=== PATIENT | female | born 1965 | race Caucasian/White ===

== ENCOUNTER 2016-08-07 11:01 | Observation (INO) | payer OTHER ==
[~2016-08-07] VITALS: Ht 162.6 cm; Wt 85.6 kg
[~2016-08-07 11:01] MED LIST: ACET325T11 PO; BENA25TA8 PO; CLIN150 PO; LACTATED RINGER'S 1000 ML INJ 2,000 ML IV ONE; NAPR500 PO; ONDANSETRON HCL 4 MG/2 ML VIAL IV PUSH ONE; PROPOFOL 200 MG/20 ML AMP IV ONE
[2016-08-07 11:04] VITALS: BP 135/79; PULSE 90; RESP 22; TEMP 98.2; O2SAT 100
--- NOTE | 2016-08-07 11:21 | PD ---
HPI Chief Complaint: GI Complaint Time Seen by Provider: 11:20 Travel History International Travel<30 days: No Contact w/Intl Traveler<30days: No Traveled to known affect area: No History of Present Illness HPI 51-year-old female presents the emergency department with 36 hours history of sudden onset abdominal pain with nausea and vomiting and chills. Patient has decreased urine output due to the fact she's been unable to eat or drink anything since yesterday. She denies fever or chills but has generalized weakness and muscle aches. She has no sore throat or headache. No cough or chest pain. Patient has no history of diverticulitis or Crohn's disease. She denies flank pain. She has generalized abdominal pain and discomfort. She is allergic to penicillin. PFSH Past Medical History ?: Not : 6 Para: 1 Miscarriage: 2 : 3 Tubal Ligation: Yes Past Surgical History Tonsillectomy: Yes Social History Alcohol Use: Yes (3 BEERS A DAY) Tobacco Use: No Substance Use: No Allergies-Medications (Allergen,Severity, Reaction): Coded Allergies: Penicillin (Verified Allergy, Severe, Anaphylaxis, 08/07/16) Reported Meds & Prescriptions Reported Meds & Active Scripts Active Naprosyn (Naproxen) 500 Mg Tab 500 Mg PO BID Cleocin (Clindamycin HCl) 150 Mg Cap 300 Mg PO Q6 10 Days Reported Tylenol 325 Mg Tab (Acetaminophen) 325 Mg Tab 650 Mg PO Q4 PRN Benadryl 25 mg tab (Diphenhydramine HCl) 25 Mg Tab 25 Mg PO Q4H Review of Systems Except as stated in HPI: all other systems reviewed are Neg General / Constitutional: Positive: Chills, No: Fever Eyes: No: Visual changes HENT: Positive: Lightheadedness, No: Headaches, Sore Throat, Rhinitis, Rhinorrhea, Congestion, Neck Stiffness, Neck Pain, Earache Cardiovascular: No: Chest Pain or Discomfort Respiratory: No: Shortness of Breath Gastrointestinal: Positive: Nausea, Vomiting, Abdominal Pain, No: Diarrhea Genitourinary: Positive: Decreased Urinary Output, No: Dysuria Musculoskeletal: Positive: Myalgias, No: Pain Skin: No Rash Neurologic: No: Weakness Psychiatric: No: Depression Endocrine: No: Polydipsia Hematologic/Lymphatic: No: Easy Bruising Physical Exam Narrative GENERAL: Patient appears ill. SKIN: Warm and dry. Poor pallor. Poor turgor with tenting present. HEAD: Atraumatic. Normocephalic. EYES: Pupils equal and round. No scleral icterus. No injection or drainage. ENT: No nasal bleeding or discharge. Mucous membranes pink and dry. Pharynx is clear. TMs clear bilaterally. NECK: Trachea midline. Supple and nontender. CARDIOVASCULAR: Tachycardic rate and normal rhythm. RESPIRATORY: No accessory muscle use. Clear to auscultation. Breath sounds equal bilaterally. GASTROINTESTINAL: Abdomen soft, generalized moderate tenderness without guarding or rebound, nondistended. No CVA tenderness. Decreased bowel sounds throughout all quadrants. Hepatic and splenic margins not palpable. MUSCULOSKELETAL: Extremities without clubbing, cyanosis, or edema. No obvious deformities. NEUROLOGICAL: Awake and alert. No obvious cranial nerve deficits. Motor grossly within normal limits. Five out of 5 muscle strength in the arms and legs. Normal speech. PSYCHIATRIC: Appropriate mood and affect; insight and judgment normal. Data Data Last Documented VS Vital Signs Date Time Temp Pulse Resp B/P Pulse Ox O2 Delivery O2 Flow Rate FiO2 08/07/16 12:45 94 20 148/92 99 Room Air 08/07/16 11:04 98.2 Orders Complete Blood Count With Diff (08/07/16 11:23) Comprehensive Metabolic Panel (08/07/16 11:23) Lipase (08/07/16 11:23) Lactic Acid (08/07/16 11:23) Prothrombin Time / Inr (Pt) (08/07/16 11:23) Act Partial Throm Time (Ptt) (08/07/16 11:23) Urinalysis - C+S If Indicated (08/07/16 11:23) Ct Abd/Pel W Iv Contrast(Rout) (08/07/16 11:23) Iv Access Insert/Monitor (08/07/16 11:23) Ecg Monitoring (08/07/16 11:23) Oximetry (08/07/16 11:23) NPO (08/07/16 11:23) Morphine Inj (Morphine Inj) (08/07/16 11:30) Ondansetron Inj (Zofran Inj) (08/07/16 11:30) Sodium Chlor 0.9% 1000 Ml Inj (Ns 1000 M (08/07/16 11:23) Sodium Chloride 0.9% Flush (Ns Flush) (08/07/16 11:30) Influenzae A/B Antigen (08/07/16 11:23) Oral Contrast - Adult (08/07/16 11:30) Diatrizoate Liq ( Gastroanjel Liq) (08/07/16 12:09) Urine Culture (08/07/16 11:56) Levofloxacin 500 Mg Premix Inj (Levaquin (08/07/16 13:15) Metronidazole 500 Mg Inj (Flagyl 500 Mg (08/07/16 13:15) Sodium Chlor 0.9% 1000 Ml Inj (Ns 1000 M (08/07/16 13:15) Ed Poc Ultrasound (08/07/16 ) Iohexol 350 Inj (Omnipaque 350 Inj) (08/07/16 13:31) Sodium Chlor 0.9% 1000 Ml Inj (Ns 1000 M (08/07/16 14:15) Diet Npo (08/07/16 Dinner) Admit Order (Ed Use Only) (08/07/16 14:11) Labs Laboratory Tests Test 08/07/16 08/07/16 11:56 12:04 Urine Color YELLOW Urine Turbidity HAZY Urine pH 7.0 Urine Specific [place] 1.021 Urine Protein 30 mg/dL Urine Glucose (UA) NEG mg/dL Urine Ketones 10 mg/dL Urine Occult Blood SMALL Urine Nitrite NEG Urine Bilirubin NEG Urine Urobilinogen LESS THAN 2.0 MG/DL Urine Leukocyte Esterase LARGE Urine RBC 9 /hpf Urine WBC 15 /hpf Urine Squamous Epithelial 6 /hpf Cells Urine Bacteria OCC /hpf Urine Mucus MOD /lpf Microscopic Urinalysis Comment CULTURE INDICATED White Blood Count 19.7 TH/MM3 Red Blood Count 4.64 MIL/MM3 Hemoglobin 14.2 GM/DL Hematocrit 41.3 % Mean Corpuscular Volume 89.0 FL Mean Corpuscular Hemoglobin 30.6 PG Mean Corpuscular Hemoglobin 34.4 % Concent Red Cell Distribution Width 12.3 % Platelet Count 407 TH/MM3 Mean Platelet Volume 7.0 FL Neutrophils (%) (Auto) 89.1 % Lymphocytes (%) (Auto) 6.7 % Monocytes (%) (Auto) 4.0 % Eosinophils (%) (Auto) 0.0 % Basophils (%) (Auto) 0.2 % Neutrophils # (Auto) 17.6 TH/MM3 Lymphocytes # (Auto) 1.3 TH/MM3 Monocytes # (Auto) 0.8 TH/MM3 Eosinophils # (Auto) 0.0 TH/MM3 Basophils # (Auto) 0.0 TH/MM3 CBC Comment DIFF FINAL Differential Comment Prothrombin Time 11.2 SEC Prothromb Time International 1.0 RATIO Ratio Activated Partial 29.5 SEC Thromboplast Time Sodium Level 131 MEQ/L Potassium Level 3.3 MEQ/L Chloride Level 94 MEQ/L Carbon Dioxide Level 26.0 MEQ/L Anion Gap 11 MEQ/L Blood Urea Nitrogen 11 MG/DL Creatinine 0.84 MG/DL Estimat Glomerular Filtration 71 ML/MIN Rate Random Glucose 129 MG/DL Lactic Acid Level 1.7 mmol/L Calcium Level 9.8 MG/DL Total Bilirubin 2.5 MG/DL Aspartate Amino Transf 6 U/L (AST/SGOT) Alanine Aminotransferase 20 U/L (ALT/SGPT) Alkaline Phosphatase 92 U/L Total Protein 8.6 GM/DL Albumin 4.1 GM/DL Lipase 84 U/L [facility] Medical Decision Making Medical Screen Exam Complete: Yes Emergency Medical Condition: Yes Differential Diagnosis Influenza. Acute nausea and vomiting. Gastritis. Diverticulitis. Appendicitis. Dehydration. Decreased urine output. Urinary tract infection. Narrative Course Patient appears ill but not septic. Labs ordered including CBC, CMP, lactic acid, lipase, urinalysis, PT PTT and INR. IV access is obtained patient is given 4 mg Zofran IV as well as 4 mg morphine IV. Patient is to get thousand and rales normal saline bolus. CT of the abdomen with IV and oral contrast was ordered. Patient is awaiting med bed placement and practitioner there will determine final diagnosis. Condition: Stable Rajesh Cox Aug 07, 2016 11:20
[2016-08-07] MEDS ORDERED: SODIUM CHLOR 0.9% 1000 ML INJ 1,000 ML IV SCH (11:23)
[2016-08-07] MEDS ORDERED: SODIUM CHLORIDE 0.9% FLUSH 5 ML FLUSH IVF PRN ×2 (11:30→18:00)
[2016-08-07] MEDS ORDERED: MORPHINE SULFATE 4 MG/ML INJ IV PUSH ONE (11:30)
[2016-08-07] MEDS ORDERED: ONDANSETRON HCL 4 MG/2 ML VIAL IVP ONE (11:30)
[2016-08-07] MEDS ORDERED: NEOSTIGMINE 3 MG/3 ML SYR IV ONE (12:00)
[2016-08-07] MEDS ORDERED: DIATRIZOATE MEGLUM/DIATRIZOATE SOD 9 ML CUP ONE (12:09)
[2016-08-07 12:19] LABS: AUTOMATED NEUTROPHIL # 17.6 TH/MM3 (1.8-7.7); BASOPHIL % 0.2 % (0.0-2.0); HEMATOCRIT 41.3 % (35.0-46.0); HEMO FLAGS DIFF FINAL; LYMPH % 6.7 % (9.0-44.0); LYMPHOCYTE # 1.3 TH/MM3 (1.0-4.8); MEAN CORPUSCULAR HEMOGLOBIN 30.6 PG (27.0-34.0); MEAN CORPUSCULAR HGB CONC 34.4 % (32.0-36.0); NEUT % 89.1 % (16.0-70.0); PLATELET COUNT 407 TH/MM3 (150-450); RED BLOOD COUNT 4.64 MIL/MM3 (4.00-5.30); RED CELL DISTRIBUTION WIDTH 12.3 % (11.6-17.2); WHITE BLOOD COUNT 19.7 TH/MM3 (4.0-11.0)
[2016-08-07 12:22] LABS: BACTERIA, URINE OCC /hpf; BLOOD, URINE SMALL (NEG); COMMENT (UR) CULTURE INDICATED; CULTURE IF INDICATED CULTURE INDICATED; GLUCOSE,URINE NEG (NEG); KETONE, URINE 10 mg/dL (NEG); MUCUS URINE MOD /lpf (OCC); NITRITE,URINE NEG (NEG); SQUAMOUS EPITHELIAL CELL URINE 6 /hpf (0-5); URINE COLOR YELLOW (YELLW/STRAW)
[2016-08-07 12:28] LABS: APTT (PATIENT) 29.5 SEC (24.3-30.1); PROTHROMBIN TIME - PATIENT 11.2 SEC (9.8-11.6)
[2016-08-07 12:45] VITALS: BP 148/92; PULSE 94; RESP 20; O2SAT 99
[2016-08-07 12:45] LABS: ANION GAP 11 MEQ/L (5-15); AST (GOT) 6 U/L (15-37); BLOOD UREA NITROGEN 11 MG/DL (7-18); CHLORIDE 94 MEQ/L (98-107); GLOMERULAR FILTRATION RATE 71 ML/MIN (>89); POTASSIUM 3.3 MEQ/L (3.5-5.1); SODIUM (NA) 131 MEQ/L (136-145)
[2016-08-07 12:49] LABS: ALKALINE PHOSPHATASE 92 U/L (45-117); ALT (GPT) 20 U/L (10-53); TOTAL BILIRUBIN ADULT 2.5 MG/DL (0.2-1.0)
[2016-08-07] MEDS ORDERED: metroNIDAZOLE 500 MG INJ 100 ML IV ONE (13:15)
[2016-08-07] MEDS ORDERED: LEVOFLOXACIN 500 MG PREMIX INJ 100 ML IV ONE (13:15)
[2016-08-07] MEDS ORDERED: SODIUM CHLOR 0.9% 1000 ML INJ 1,000 ML IV ONE ×3 (13:15→14:30)
--- NOTE | 2016-08-07 13:27 | PD ---
HPI Chief Complaint: GI Complaint Time Seen by Provider: 12:40 Travel History International Travel<30 days: No Contact w/Intl Traveler<30days: No Traveled to known affect area: No History of Present Illness HPI 51-year-old female came to the emergency room with history of abdominal pain since yesterday. Patient points her pain towards her lower part of the abdomen bilaterally. She is also complaining of some pain on the upper abdomen. No history of vomiting that she was little nauseous. Her appetite his down. Pain is quite severe. Walking hurts. Patient has never had pain like this in the past. She was seen by the provider in triage and workup was initiated. By the time she came to the room here blood test results were back and her white count was elevated. She also had a UTI. I started her on IV Levaquin and Flagyl and give her IV fluid bolus. PFSH Past Medical History Narrative Medical List of her past medical, surgical, social and family history is reviewed from the nursing note. ?: Not : 6 Para: 1 Miscarriage: 2 : 3 Tubal Ligation: Yes Past Surgical History Tonsillectomy: Yes Social History Alcohol Use: No Tobacco Use: No Substance Use: No Allergies-Medications (Allergen,Severity, Reaction): Coded Allergies: Penicillin (Verified Allergy, Severe, Anaphylaxis, 08/07/16) Comments List of her allergies reviewed from the nursing note. Reported Meds & Prescriptions Reported Meds & Active Scripts Active Oxycodone-Acetaminophen 5-325 mg Tab 1-2 Tab PO Q4H PRN Naprosyn (Naproxen) 500 Mg Tab 500 Mg PO BID Cleocin (Clindamycin HCl) 150 Mg Cap 300 Mg PO Q6 10 Days Reported Tylenol 325 Mg Tab (Acetaminophen) 325 Mg Tab 650 Mg PO Q4 PRN Benadryl 25 mg tab (Diphenhydramine HCl) 25 Mg Tab 25 Mg PO Q4H Narrative Medication List of her home medications reviewed from the nursing note. Review of Systems Except as stated in HPI: all other systems reviewed are Neg Physical Exam Narrative GENERAL: Awake, alert, moderate distress SKIN: Warm and dry. HEAD: Atraumatic. Normocephalic. EYES: Pupils equal and round. No scleral icterus. No injection or drainage. ENT: No nasal bleeding or discharge. Mucous membranes pink and moist. NECK: Trachea midline. No JVD. CARDIOVASCULAR: Regular rate and rhythm. No murmur appreciated. RESPIRATORY: No accessory muscle use. Clear to auscultation. Breath sounds equal bilaterally. GASTROINTESTINAL: Abdomen is tender and distended. Tender on palpation in the bilateral lower quadrant with guarding. MUSCULOSKELETAL: No obvious deformities. No clubbing. No cyanosis. No edema. NEUROLOGICAL: Awake and alert. No obvious cranial nerve deficits. Motor grossly within normal limits. Normal speech. PSYCHIATRIC: Appropriate mood and affect; insight and judgment normal. Data Data Last Documented VS Vital Signs Date Time Temp Pulse Resp B/P Pulse Ox O2 Delivery O2 Flow Rate FiO2 08/07/16 12:45 94 20 148/92 99 Room Air 08/07/16 11:04 98.2 Orders Complete Blood Count With Diff (08/07/16 11:23) Comprehensive Metabolic Panel (08/07/16 11:23) Lipase (08/07/16 11:23) Lactic Acid (08/07/16 11:23) Prothrombin Time / Inr (Pt) (08/07/16 11:23) Act Partial Throm Time (Ptt) (08/07/16 11:23) Urinalysis - C+S If Indicated (08/07/16 11:23) Ct Abd/Pel W Iv Contrast(Rout) (08/07/16 11:23) Iv Access Insert/Monitor (08/07/16 11:23) Ecg Monitoring (08/07/16 11:23) Oximetry (08/07/16 11:23) NPO (08/07/16 11:23) Morphine Inj (Morphine Inj) (08/07/16 11:30) Ondansetron Inj (Zofran Inj) (08/07/16 11:30) Sodium Chlor 0.9% 1000 Ml Inj (Ns 1000 M (08/07/16 11:23) Sodium Chloride 0.9% Flush (Ns Flush) (08/07/16 11:30) Influenzae A/B Antigen (08/07/16 11:23) Oral Contrast - Adult (08/07/16 11:30) Diatrizoate Liq ( Gastroview Liq) (08/07/16 12:09) Urine Culture (08/07/16 11:56) Levofloxacin 500 Mg Premix Inj (Levaquin (08/07/16 13:15) Metronidazole 500 Mg Inj (Flagyl 500 Mg (08/07/16 13:15) Sodium Chlor 0.9% 1000 Ml Inj (Ns 1000 M (08/07/16 13:15) Ed Poc Ultrasound (08/07/16 ) Iohexol 350 Inj (Omnipaque 350 Inj) (08/07/16 13:31) Sodium Chlor 0.9% 1000 Ml Inj (Ns 1000 M (08/07/16 14:15) Admit Order (Ed Use Only) (08/07/16 14:11) Labs Laboratory Tests Test 08/07/16 08/07/16 11:56 12:04 Urine Color YELLOW Urine Turbidity HAZY Urine pH 7.0 Urine Specific [place] 1.021 Urine Protein 30 mg/dL Urine Glucose (UA) NEG mg/dL Urine Ketones 10 mg/dL Urine Occult Blood SMALL Urine Nitrite NEG Urine Bilirubin NEG Urine Urobilinogen LESS THAN 2.0 MG/DL Urine Leukocyte Esterase LARGE Urine RBC 9 /hpf Urine WBC 15 /hpf Urine Squamous Epithelial 6 /hpf Cells Urine Bacteria OCC /hpf Urine Mucus MOD /lpf Microscopic Urinalysis Comment CULTURE INDICATED White Blood Count 19.7 TH/MM3 Red Blood Count 4.64 MIL/MM3 Hemoglobin 14.2 GM/DL Hematocrit 41.3 % Mean Corpuscular Volume 89.0 FL Mean Corpuscular Hemoglobin 30.6 PG Mean Corpuscular Hemoglobin 34.4 % Concent Red Cell Distribution Width 12.3 % Platelet Count 407 TH/MM3 Mean Platelet Volume 7.0 FL Neutrophils (%) (Auto) 89.1 % Lymphocytes (%) (Auto) 6.7 % Monocytes (%) (Auto) 4.0 % Eosinophils (%) (Auto) 0.0 % Basophils (%) (Auto) 0.2 % Neutrophils # (Auto) 17.6 TH/MM3 Lymphocytes # (Auto) 1.3 TH/MM3 Monocytes # (Auto) 0.8 TH/MM3 Eosinophils # (Auto) 0.0 TH/MM3 Basophils # (Auto) 0.0 TH/MM3 CBC Comment DIFF FINAL Differential Comment Prothrombin Time 11.2 SEC Prothromb Time International 1.0 RATIO Ratio Activated Partial 29.5 SEC Thromboplast Time Sodium Level 131 MEQ/L Potassium Level 3.3 MEQ/L Chloride Level 94 MEQ/L Carbon Dioxide Level 26.0 MEQ/L Anion Gap 11 MEQ/L Blood Urea Nitrogen 11 MG/DL Creatinine 0.84 MG/DL Estimat Glomerular Filtration 71 ML/MIN Rate Random Glucose 129 MG/DL Lactic Acid Level 1.7 mmol/L Calcium Level 9.8 MG/DL Total Bilirubin 2.5 MG/DL Aspartate Amino Transf 6 U/L (AST/SGOT) Alanine Aminotransferase 20 U/L (ALT/SGPT) Alkaline Phosphatase 92 U/L Total Protein 8.6 GM/DL Albumin 4.1 GM/DL Lipase 84 U/L [facility] Medical Decision Making Medical Screen Exam Complete: Yes Emergency Medical Condition: Yes Medical Record Reviewed: Yes Differential Diagnosis Acute cholecystitis, acute appendicitis Narrative Course 2:16 PM based on the blood test result medications were started. CAT scan report just came back with acute appendicitis and possible perforation. I spoke with the surgeon Dr. Karimi and he wants the patient to be admitted under his service. He'll look at the CT and decide whether patient will be going to the OR now. I have informed the patient about this. Procedures EKG Prior to Arrival: No Physician Communication Physician Communication Dr. Karimi Diagnosis Primary Impression: Acute appendicitis Qualified Code: K35.3 - Acute appendicitis with localized peritonitis Admitting Information Admitting Physician Requests: Admit Scripts Ondansetron (Zofran)4 Mg Tab4 Mg PO Q6HR PRN (NAUSEA OR VOMITING) #20 TAB Ref 0 Prov:Ramírez Karimi MD 08/09/16 Oxycodone-Acetaminophen 5-325 mg Tab1-2 Tab PO Q4H PRN (PAIN) #30 TAB Ref 0 Prov:Ramírez Karimi MD 08/07/16 Condition: Stable Stephanie Thompson MD Aug 07, 2016 13:27
[2016-08-07] MEDS ORDERED: IOHEXOL 350 MG/ML 10 ML VIAL (for RAD DIAG) IV ONE (13:31)
--- NOTE | 2016-08-07 13:56 | RADRPT ---
EXAM DATE/TIME: 08/07/2016 13:23 [place] COMPARISON: No previous studies available for comparison. INDICATIONS : Abdominal pain with vomiting for 2 days. IV CONTRAST: 98 cc Omnipaque 350 (iohexol) IV ORAL CONTRAST: Partial prescribed oral contrast ingested. RADIATION DOSE: 10.19 CTDIvol (mGy) MEDICAL HISTORY : None SURGICAL HISTORY : Tubal ligation. ENCOUNTER: Initial ACUITY: 2 days PAIN SCALE: 4/10 LOCATION: Diffuse abdomen/pelvis TECHNIQUE: Volumetric scanning of the abdomen and pelvis was performed. Using automated exposure control and ad justment of the mA and/or kV according to patient size, radiation dose was kept as low as reasonably achievable to obtain optimal diagnostic quality images. FINDINGS: LOWER LUNGS: The visualized lower lungs are clear. LIVER: The liver is enlarged measuring 20.1 cm in length. In the right posterior liver there is a 15 mm low- density lesion. Density measurements are not consistent with a simple cyst and there may be periphera l nodular enhancement. There is no dilation of the biliary tree. No calcified gallstones. SPLEEN: Normal size without lesion. PANCREAS: Within normal limits. KIDNEYS: Normal in size and shape. There is no mass, stone or hydronephrosis. ADRENAL GLANDS: Right adrenal gland is normal. Left adrenal gland contains a fat density mass measuring 2.2 cm. VASCULAR: There is no aortic aneurysm. BOWEL/MESENTERY: The stomach and small bowel demonstrates no abnormality. The appendix is dilated and fluid-filled wit h surrounding periappendiceal inflammation. It measures 12 mm in diameter. There is likely an appendi colith at the base of the appendix. The appendix extends slightly across the midline. There is questi onable extraluminal air adjacent to the tip. Trace free fluid is present in the pelvis. ABDOMINAL WALL: Within normal limits. RETROPERITONEUM: There is no lymphadenopathy. BLADDER: No wall thickening or mass. REPRODUCTIVE: Within normal limits. INGUINAL: There is no lymphadenopathy or hernia. MUSCULOSKELETAL: There is mild sclerosis adjacent to the anterior left sacroiliac joint. No acute osseous abnormality is visualized. CONCLUSION: 1. The imaging findings are diagnostic of acute appendicitis. The appendix is dilated and fluid-fille d with surrounding inflammatory change. There is a possible appendicolith at the base of the appendix . There is trace free fluid in the pelvis. Based on the appearance of the tip of the appendix the chago endix may be perforated. 2. There is a 15 mm right liver lesion. It is incompletely characterized on this study but given the features it may represent a hemangioma. 3. 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 Raghavendra Bassett MD on August 07, 2016 at 13:47 Board Certified Radiologist. This report was verified electronically.
[2016-08-07 14:15] VITALS: BP 133/74; PULSE 95; RESP 18; O2SAT 99
[2016-08-07] MEDS ORDERED: BUPIVACAINE/EPINEPHRINE 0.25% 50 ML VIAL ONE (15:41)
[2016-08-07] MEDS ORDERED: ACETAMINOPHEN 1000 MG/100 ML VIAL IV ONE (16:25)
[2016-08-07] MEDS ORDERED: OXYC1TAB63 PO (17:52)
--- NOTE | 2016-08-07 17:55 | PD.OP ---
cc: Ramírez Karimi MD Operative Report Date of Surgery: Aug 07, 2016 Preoperative Diagnosis: (1) Acute appendicitis Postoperative Diagnosis: (1) Acute appendicitis Procedure: Laparoscopic appendectomy Anesthesia: GETA Surgeon: Ramírez Karimi Technical Specialist(s): Nava SHEPPARD Operation and Findings: EBL: 5 cc Complications: None apparent Operative findings: The patient and inflamed gangrenous appendix with some exudate around it. It was laying over the mesentery in the lower abdomen. Procedure in detail: The patient was taken to the operating room placed in the supine position with left arm tucked. General endotracheal anesthesia was induced and the abdomen was prepped and draped in usual sterile fashion. Surgical timeout was performed to verify correct patient procedure and site. Perioperative antibiotics were administered as necessary. Local anesthetic was injected in the skin and subcutaneous tissue at the inferior umbilicus and a 5 mm incision made. Using the 5 mm Optiview trocar with laparoscope the abdomen was directly entered. Was then insufflated to 15 mmHg with CO2 gas which the patient tolerated well. The patient was then placed in Trendelenburg position and turned slightly to the left. A 12 mm port was placed under laparoscopic visualization in the suprapubic area and a 5 mm port in the lower abdomen. Attention was turned to the right lower quadrant and the appendix was gangrenous and inflamed. There was some exudative material surrounding it. There was cloudy fluid in the pelvis. There was no shaun pus. The appendix was adherent to the mesentery in the lower abdomen. It was bluntly dissected free The mesoappendix was taken down with the Harmonic scalpel. Two #1 PDS Endoloops were placed at the base the appendix and the appendix transected with Harmonic scalpel. It was then removed using an Endo Catch bag. The appendiceal stump was intact with no leakage. The mesentery with exited material was present was copiously irrigated as well as right lower quadrant and pelvis. The trochars were removed and the abdomen allowed to desufflate. The fascia at the 12 mm port site was closed with 0 Vicryl suture. Skin closed with subcuticular Monocryl as well as Dermabond. The patient tolerated the procedure well was extubated and taken to PACU in stable condition. Ramírez Karimi MD Aug 07, 2016 17:55
[2016-08-07] MEDS ORDERED: diphenhydrAMINE HCL 50 MG/ML VIAL IV PRN (18:00)
[2016-08-07] MEDS ORDERED: Post-op Orders (for Pharmacy) MISC XX ONE (18:00)
[2016-08-07] MEDS ORDERED: oxyCODONE/ACETAMINOPHEN 5 MG/325 MG TAB PO PRN (18:00)
[2016-08-07] MEDS ORDERED: MORPHINE SULFATE 4 MG/ML INJ IV PRN (18:00)
[2016-08-07] MEDS ORDERED: NALOXONE HCL 0.4 MG/ML AMP IV PRN (18:00)
[2016-08-07] MEDS ORDERED: MIDAZOLAM HCL 2 MG/2 ML VIAL ONE (18:16)
[2016-08-07] MEDS ORDERED: fentaNYL CITRATE 250 MCG/5 ML AMP ONE (18:16)
[2016-08-07] MEDS: LACTATED RINGER'S 1000 ML INJ 1,000 ML IV SCH (18:33)
--- NOTE | 2016-08-07 18:39 | MH ---
cc: HANNA ANDERSON MD DATE OF ADMISSION 08/07/2016 CHIEF COMPLAINT Abdominal pain HISTORY OF PRESENT ILLNESS This is a 51-year-old female who has had abdominal pain since yesterday which is increasing in severity. She had associated anorexia as well as emesis. She denies fever and chills. Her past surgical history includes a tubal ligation. The patient was evaluated in the emergency department and noted to have lower abdominal tenderness as well as white blood count of 20,000. CT scan of the abdomen and pelvis was consistent with acute appendicitis. PAST MEDICAL HISTORY None PAST SURGICAL HISTORY 1. Tonsillectomy 2. Tubal ligation MEDICATIONS Home medications. No prescription medications. ALLERGIES PENICILLIN FAMILY HISTORY Noncontributory. SOCIAL HISTORY She drinks about three beers daily. No tobacco or drug use. REVIEW OF SYSTEMS 10-point review of systems negative except as mentioned in the HPI. PHYSICAL EXAMINATION GENERAL: Pleasant 51-year-old female uncomfortable but not in distress. HEAD: Normocephalic, atraumatic. EYES: Pupils equal, react to light bilaterally. ENT: Moist oral mucosa. LUNGS: Clear to auscultation bilaterally. No wheezing or rhonchi. CARDIOVASCULAR: Regular rate and rhythm. ABDOMEN: Round. Well-healed lower abdominal incision. Rebound and severe tenderness bilaterally in the lower abdomen. EXTREMITIES: No cyanosis or edema. IMAGING STUDIES CT abdomen and pelvis had acute appendicitis with a dilated appendix which was fluid-filled and had surrounding inflammatory changes. There was also a 2.2 cm left adrenal gland mass. IMPRESSION AND PLAN A 51-year-old female with acute appendicitis. I discussed with the patient the details, risks and benefits of the procedure and I recommend to proceed with laparoscopic appendectomy. She agrees. We will proceed at this time after consent is obtained. MD JOHANNE Riojas/ /5:58 PM /6:22 PM
[2016-08-07] MEDS ORDERED: DO NOT ADM ANY ANTICOAGULANT DRUGS XX PRN (19:00)
[2016-08-07 20:00] VITALS: BP 109/71; PULSE 85; RESP 18; TEMP 97.9; O2SAT 97
[2016-08-07] MEDS: oxyCODONE/ACETAMINOPHEN 10 MG/325 MG TAB PO PRN (21:14)
[2016-08-07] MEDS: metroNIDAZOLE 500 MG INJ 100 ML IV SCH (21:14)
[2016-08-07] MEDS: SODIUM CHLORIDE 0.9% FLUSH 5 ML FLUSH IVF SCH (21:15)
[2016-08-08] VITALS (7 sets, daily range): BP systolic 99–131; BP diastolic 64–88; PULSE 76–89; RESP 16–20; TEMP 96.9–98; O2SAT 97–98
[2016-08-08] MEDS: ONDANSETRON HCL 4 MG/2 ML VIAL IV PRN ×2 (01:47→07:45)
[2016-08-08] MEDS: LACTATED RINGER'S 1000 ML INJ 1,000 ML IV SCH (01:48)
[2016-08-08] MEDS: metroNIDAZOLE 500 MG INJ 100 ML IV SCH ×2 (04:29→14:00)
[2016-08-08] MEDS: oxyCODONE/ACETAMINOPHEN 10 MG/325 MG TAB PO PRN ×3 (04:29→22:36)
[2016-08-08] MEDS: SODIUM CHLORIDE 0.9% FLUSH 5 ML FLUSH IVF SCH ×2 (09:00→19:54)
--- NOTE | 2016-08-08 16:24 | HHI.PR ---
Subjective Subjective Notes Having some shoulder pain and gas pain. Had nausea with meds but improving. James liquids. Uncomfortable. Objective Vitals/I&O Vital Signs Date Time Temp Pulse Resp B/P Pulse Ox O2 Delivery O2 Flow Rate FiO2 08/08/16 12:00 98.0 82 16 131/84 98 08/08/16 08:30 21 08/07/16 19:00 Room Air 08/07/16 18:30 2 Labs Date/Time Procedure Status Source Growth 08/07/16 11:56 Urine Culture - Final Complete Urine Clean Catch 10-50,000 CFU/ML MIXED GRAM POSITIVE ... 08/07/16 11:56 Influenza Types A,B Antigen ([facility]I) - Final Complete Nasal Washing NEGATIVE FOR FLU A AND B ANTIGEN.... Narrative Exam NAD, uncomfortable Abd: soft, inc c/d/i, post op ttp A/P Assessment and Plan 51 yo F POD 1 s/p lap appy. Stable post op but having significant pain. Will keep her overnight. Regular diet. Encouraged ambulation. Ramírez Karimi MD Aug 08, 2016 16:24
[2016-08-08] MEDS: ONDANSETRON ODT 4 MG TAB PO PRN (19:53)
--- NOTE | 2016-08-08 19:54 | EKG ---
Date Performed: 08/07/2016 Time Performed: 16:16:35 PTAGE: 51 years EKG: SINUS TACHYCARDIA POSSIBLE LEFT ATRIAL ENLARGEMENT INCOMPLETE RIGHT BUNDLE BRANCH BLOCK ST DEVIATION AND MODERATE T-WAVE ABNORMALITY, CONSIDER LATERAL ISCHEMIA ABNORMAL ECG NO PREVIOUS TRACING DOCTOR: Sanjay Rahman Interpretating Date/Time 08/08/2016 19:52:34
[2016-08-09] VITALS: BP 115/72; PULSE 84; RESP 20; TEMP 97.9; O2SAT 98
[2016-08-09] MEDS: LACTATED RINGER'S 1000 ML INJ 1,000 ML IV SCH
[2016-08-09] MEDS: ONDANSETRON ODT 4 MG TAB PO PRN ×3 (02:01→15:09)
[2016-08-09] MEDS: oxyCODONE/ACETAMINOPHEN 10 MG/325 MG TAB PO PRN ×3 (04:37→15:09)
[2016-08-09 07:52] VITALS: BP 116/79; PULSE 73; RESP 16; TEMP 97.1; O2SAT 98
[2016-08-09] MEDS ORDERED: ZOFR4TAB PO (11:26)
--- NOTE | 2016-08-09 11:28 | HHI.DS ---
Discharge Summary Admission Date Aug 07, 2016 at 14:13 Discharge Date: Aug 09, 2016 Admitting Diagnosis appendicitis, sepsis Procedures Lap appendectomy Brief History 51 yo F presented with abdominal pain and evaluation is consistent with acute appendicitis. CBC/BMP: 08/07/16 1204 08/07/16 1204 Significant Findings Laboratory Tests Test 08/07/16 08/07/16 11:56 12:04 Urine Turbidity HAZY (CLEAR) Urine Protein 30 mg/dL (NEG-TRACE) Urine Ketones 10 mg/dL (NEG) Urine Occult Blood SMALL (NEG) Urine Leukocyte Esterase LARGE (NEG) Urine RBC 9 /hpf (0-3) Urine WBC 15 /hpf (0-5) Urine Bacteria OCC /hpf (NONE) Urine Mucus MOD /lpf (OCC) White Blood Count 19.7 TH/MM3 (4.0-11.0) Neutrophils (%) (Auto) 89.1 % (16.0-70.0) Lymphocytes (%) (Auto) 6.7 % (9.0-44.0) Neutrophils # (Auto) 17.6 TH/MM3 (1.8-7.7) Sodium Level 131 MEQ/L (136-145) Potassium Level 3.3 MEQ/L (3.5-5.1) Chloride Level 94 MEQ/L (98-107) Estimat Glomerular Filtration 71 ML/MIN (>89) Rate Random Glucose 129 MG/DL (74-106) Total Bilirubin 2.5 MG/DL (0.2-1.0) Aspartate Amino Transf 6 U/L (15-37) (AST/SGOT) Total Protein 8.6 GM/DL (6.4-8.2) PE at Discharge NAD Abd: soft, inc c/d/i, post op ttp Hospital Course Postoperatively the patient had nausea and felt somewhat poorly overall. This gradually improved and she is able to tolerate liquid diet, pain better controlled. Pt Condition on Discharge: Good Discharge Disposition: Discharge Home Discharge Instructions DIET: Follow Instructions for: As Tolerated, No Restrictions Activities you can perform: See Additionl Instruction Other Activity Instructions: Ok to shower. No heavy lifting. Follow up Referrals: Surgical - 2 Weeks with Ramírez Karimi MD New Medications: Ondansetron (Zofran) 4 Mg Tab 4 MG PO Q6HR PRN NAUSEA OR VOMITING #20 Ref 0 TAB Oxycodone-Acetaminophen (Oxycodone-Acetaminophen) 5-325 mg Tab 1-2 TAB PO Q4H PRN PAIN #30 Ref 0 TAB Ramírez aKrimi MD Aug 09, 2016 11:28
[2016-08-09 11:30] VITALS: BP 122/79; PULSE 82; RESP 16; TEMP 95.7; O2SAT 99
== END 2016-08-09 15:58 | disposition home or self-care (01) ==
LOC: NEPC 11:01 → NEDA 14:13 → INTOOBSV 14:13 → N06B 19:27
PROVIDERS: ADMIT Surgery; ATTEND Surgery
DX: K35.80 Unspecified acute appendicitis (principal); Z88.0 Allergy status to penicillin
CPT/HCPCS: 00840; 44970; 74177; 80053; 81001; 83605; 83690; 85025; 85610; 85730; 87086; 87804; 88304; 93005; 94150; 96361; 96374; 96375; 99285; G0378; J0131; J1956; J2250; J2270; J2405; J2710; J3010; J7030; J7120; Q9963; Q9967

== ENCOUNTER 2016-12-15 09:32 | Emergency (ER) | payer OTHER ==
[~2016-12-15] VITALS: Ht 162.6 cm; Wt 79.0 kg
[~2016-12-15 09:32] MED LIST changes: -ACET325T11 PO; -BENA25TA8 PO; -CLIN150 PO; +DIPH25CA PO; +IBUP200C PO; -LACTATED RINGER'S 1000 ML INJ 2,000 ML IV ONE; +LISI-515 PO; +MELO7.5T4 PO; -NAPR500 PO; -ONDANSETRON HCL 4 MG/2 ML VIAL IV PUSH ONE; -PROPOFOL 200 MG/20 ML AMP IV ONE; +TRIA0.5O TOPICAL; +TYLE325T PO
[2016-12-15 09:34] VITALS: BP 130/88; PULSE 62; RESP 17; TEMP 98.6; O2SAT 98
--- NOTE | 2016-12-15 09:58 | PD ---
HPI . dental pain x 1 day Chief Complaint: Oral / Dental Pain or Problem Time Seen by Provider: 09:57 Travel History International Travel<30 days: No Contact w/Intl Traveler<30days: No Traveled to known affect area: No History of Present Illness HPI 51 yr old female who is a patient at the [facility] here with c/o tooth pain x 1 day. She tells me she has some facial swelling. She denies any fever or chills. PFSH Past Medical History Cardiovascular Problems: Yes Diabetes: No Endocrine: Yes Genitourinary: No Musculoskeletal: Yes (back and knee pain) Neurologic: No Reproductive: No Respiratory: No Thyroid Disease: Yes ?: Not : 6 Para: 1 Miscarriage: 2 : 3 Tubal Ligation: Yes Past Surgical History Gynecologic Surgery: Yes (tubal ligation) Oral Surgery: Yes (tonsillectomy) Tonsillectomy: Yes Social History Alcohol Use: No Tobacco Use: No Substance Use: Yes (marijuana) Allergies-Medications (Allergen,Severity, Reaction): Coded Allergies: Penicillin (Verified Allergy, Severe, Anaphylaxis, 12/10/16) Reported Meds & Prescriptions Reported Meds & Active Scripts Active Lisinopril 20 Mg Tab 20 Mg PO DAILY Triamcinolone Topical 0.5 % Oint 1 Applic TOPICAL BID Meloxicam 7.5 Mg Tab 7.5 Mg PO DAILY Diphenhydramine (Diphenhydramine HCl) 25 Mg Cap 25 Mg PO Q6H PRN Tylenol (Acetaminophen) 325 Mg Tab 325 Mg PO Q6H PRN Ibuprofen 200 Mg Cap 200 Mg PO Q6H PRN Review of Systems General / Constitutional: No: Fever Eyes: No: Visual changes HENT: Positive: Dental Difficulties, No: Headaches Cardiovascular: No: Chest Pain or Discomfort Respiratory: No: Shortness of Breath Gastrointestinal: No: Abdominal Pain Genitourinary: No: Dysuria Musculoskeletal: No: Pain Skin: No Rash Neurologic: No: Weakness Psychiatric: No: Depression Endocrine: No: Polydipsia Hematologic/Lymphatic: No: Easy Bruising Physical Exam Narrative GENERAL: AAO x 3, no acute distress, Well-nourished, well-developed patient. SKIN: Warm and dry. No visible rashes or bruising. HEAD: Normocephalic and atraumatic. EYES: No scleral icterus. No injection or drainage. ENT: No nasal drainage noted. Mucous membranes pink. Airway patent. #7,8,9, rotting and cracked, no visible gum swelling, very minimal facial edema. NECK: Supple, trachea midline. No JVD. no lymphadenopathy CARDIOVASCULAR: Regular rate and rhythm without murmurs, gallops, or rubs. RESPIRATORY: Breath sounds equal bilaterally. No accessory muscle use. No rhonchi or rales. GASTROINTESTINAL: visual inspection normal EXTREMITIES: No cyanosis or edema. BACK: No obvious deformity. NEURO: CN II-12 intact, PSYCH: AAO x 3, normal affect. Data Data Last Documented VS Vital Signs Date Time Temp Pulse Resp B/P Pulse Ox O2 Delivery O2 Flow Rate FiO2 12/15/16 09:34 98.6 62 17 130/88 98 MDM Medical Decision Making Medical Screen Exam Complete: Yes Emergency Medical Condition: No Medical Record Reviewed: Yes Differential Diagnosis dentalgia, less likely oral abscess, early oral abscess Narrative Course A medical screening exam was performed: At the time of evaluation the presenting medical condition was determined not to be of an emergent nature. The patient was given the option of receiving additional care, but declined. Patient was given options for additional community resources from which to obtain care. The Patient Has Been advised to seek medical attention for their presenting complaint. The patient has been advised to return to the ER at any time if an emergent condition develops. Patient is being escorted to the community clinic for care there. Diagnosis Primary Impression: Encounter for medical screening examination Condition: Stable Tia Zapata Dec 15, 2016 09:58
== END 2016-12-15 10:27 | disposition left against medical advice (07) ==
LOC: NEPK 09:32
DX: K08.89 Other specified disorders of teeth and supporting structures (principal)
CPT/HCPCS: 99281

== ENCOUNTER → 2016-12-19 | Outpatient (CLI) | payer OTHER ==
[2016-12-19 08:33] LABS: HEMATOCRIT 40.7 % (35.0-46.0); MEAN CELL VOLUME 92.3 FL (80.0-100.0); MEAN CORPUSCULAR HEMOGLOBIN 31.1 PG (27.0-34.0); MEAN CORPUSCULAR HGB CONC 33.7 % (32.0-36.0); PLATELET COUNT 409 TH/MM3 (150-450); RED BLOOD COUNT 4.41 MIL/MM3 (4.00-5.30); RED CELL DISTRIBUTION WIDTH 12.9 % (11.6-17.2); REVIEW FLAG FINAL; WHITE BLOOD COUNT 8.2 TH/MM3 (4.0-11.0)
[2016-12-19 09:05] LABS: ALT (GPT) 24 U/L (10-53)
[2016-12-19 09:11] LABS: ALKALINE PHOSPHATASE 80 U/L (45-117); HDL CHOLESTEROL 47.8 MG/DL (40.0-60.0); LDL CHOLESTEROL 160 MG/DL (0-99); TOTAL BILIRUBIN ADULT 0.7 MG/DL (0.2-1.0)
[2016-12-19 09:12] LABS: ANION GAP 8 MEQ/L (5-15); AST (GOT) 17 U/L (15-37); BICARBONATE 26.9 MEQ/L (21.0-32.0); BLOOD UREA NITROGEN 11 MG/DL (7-18); CHLORIDE 104 MEQ/L (98-107); GLOMERULAR FILTRATION RATE 92 ML/MIN (>89); GLUCOSE,FASTING 97 MG/DL (74-99); POTASSIUM 3.9 MEQ/L (3.5-5.1); SODIUM (NA) 139 MEQ/L (136-145)
== END ==
LOC: CLAB 07:57
PROVIDERS: ATTEND Nurse Practitioner Family
DX: I10 Essential (primary) hypertension (principal); E78.5 Hyperlipidemia, unspecified
CPT/HCPCS: 36415; 80053; 80061; 85027

== ENCOUNTER 2017-07-23 10:52 | Emergency (ER) | payer OTHER ==
[~2017-07-23 10:52] MED LIST changes: +MELO7.5T27 PO; -MELO7.5T4 PO
[2017-07-23 10:55] VITALS: BP 141/68; PULSE 84; RESP 18; TEMP 98.4; O2SAT 98
--- NOTE | 2017-07-23 11:42 | PD ---
HPI Chief Complaint: Client Account Manager Problem/Complaint Time Seen by Provider: 11:16 Travel History International Travel<30 days: No Contact w/Intl Traveler<30days: No Traveled to known affect area: No History of Present Illness HPI 52-year-old female presents to the emergency department with complaint of burning on urination and foul smelling yellow discharge from her vagina 1 week. States her boyfriend has a urinary tract infection. Reports vaginal itching. Denies vaginal source. Denies hematuria or urinary frequency. Denies fever, vomiting, abdominal pain. Has not taken any medications or tried any treatments to alleviate his symptoms. No known relieving or aggravating factors. Symptoms are mild in severity. Primary care provider is [facility]. Allergies to penicillin. History of hypertension and does not take medications. History of tubal ligation. Has not had a menses for a long time and cannot remember the last date it was. Has no other medical complaints. No other modifying factors or associated signs and symptoms. PFSH Past Medical History Cardiovascular Problems: Yes Diabetes: No Endocrine: Yes Genitourinary: No Musculoskeletal: Yes (back and knee pain) Neurologic: No Reproductive: No Respiratory: No Thyroid Disease: Yes : 6 Para: 1 Miscarriage: 2 : 3 Tubal Ligation: Yes Past Surgical History Gynecologic Surgery: Yes (tubal ligation) Oral Surgery: Yes (tonsillectomy) Tonsillectomy: Yes Social History Alcohol Use: No Tobacco Use: No Substance Use: Yes (marijuana) Allergies-Medications (Allergen,Severity, Reaction): Coded Allergies: penicillin G (Unverified Allergy, Severe, Anaphylaxis, 07/23/17) Reported Meds & Prescriptions Reported Meds & Active Scripts Active Macrobid (Nitrofurantoin Monoh/Nitrofur Macro) 100 Mg Cap 100 Mg PO BID 5 Days Diflucan (Fluconazole) 150 Mg Tab 150 Mg PO ONCE Take one pill now by mouth and Take one pill in 1 week if symptoms persist Lisinopril 20 Mg Tab 20 Mg PO DAILY Triamcinolone Topical 0.5 % Oint 1 Applic TOPICAL BID Meloxicam 7.5 Mg Tab 7.5 Mg PO DAILY Diphenhydramine (Diphenhydramine HCl) 25 Mg Cap 25 Mg PO Q6H PRN Tylenol (Acetaminophen) 325 Mg Tab 325 Mg PO Q6H PRN Ibuprofen 200 Mg Cap 200 Mg PO Q6H PRN Review of Systems Except as stated in HPI: all other systems reviewed are Neg Physical Exam Narrative GENERAL: Well-nourished, well-developed female patient, in no acute distress; afebrile, nontoxic-appearing SKIN: Warm and dry. HEAD: Atraumatic. Normocephalic. EYES: Pupils equal and round. No scleral icterus. No injection or drainage. ENT: Mucous membranes pink and moist. NECK: Trachea midline. No lymphadenopathy. CARDIOVASCULAR: Regular rate and rhythm. No murmur appreciated. RESPIRATORY: No accessory muscle use. Clear to auscultation. Breath sounds equal bilaterally. GASTROINTESTINAL: Abdomen soft, non-tender, nondistended. Bilateral pelvic region nontender to palpation. Hepatic and splenic margins not palpable. No guarding, rigidity, rebound tenderness. PELVIC: Exam done in the presence of a nurse. Speculum exam reveals edematous and erythematous cervix with yellowish, mucopurulent, foul-smelling discharge. Bimanual exam reveals no palpable masses or adnexa tenderness, no uterine tenderness. No cervical motion tenderness. External vagina with erythremic, moist rash appears consistent with yeast infection. BACK: No CVA tenderness. MUSCULOSKELETAL: No obvious deformities. No clubbing. No cyanosis. No edema. NEUROLOGICAL: Awake and alert. No obvious cranial nerve deficits. Motor grossly within normal limits. Normal speech. PSYCHIATRIC: Appropriate mood and affect; insight and judgment normal. Data Data Last Documented VS Vital Signs Date Time Temp Pulse Resp B/P (MAP) Pulse Ox O2 Delivery O2 Flow Rate FiO2 07/23/17 12:15 80 18 132/76 (94) 98 Room Air 07/23/17 10:55 98.4 Orders Orders Gc And Chlamydia Pcr (07/23/17 11:19) Wet Prep Profile (07/23/17 11:19) Urinalysis - C+S If Indicated (07/23/17 11:19) Ceftriaxone Inj (Rocephin Inj) (07/23/17 12:45) Lidocaine 1% Inj (50 Ml) (Xylocaine 1% I (07/23/17 12:45) Azithromycin (Zithromax) (07/23/17 12:45) Ondansetron Odt (Zofran Odt) (07/23/17 12:45) Ed Discharge Order (07/23/17 13:33) Labs Laboratory Tests Test 07/23/17 12:00 07/23/17 12:40 Urine Color YELLOW Urine Turbidity HAZY Urine pH 5.5 Urine Specific [place] 1.036 Urine Protein 30 mg/dL Urine Glucose (UA) NEG mg/dL Urine Ketones NEG mg/dL Urine Occult Blood SMALL Urine Nitrite NEG Urine Bilirubin NEG Urine Urobilinogen 2.0 MG/DL Urine Leukocyte Esterase LARGE Urine RBC 3 /hpf Urine WBC 3 /hpf Urine Squamous Epithelial Cells 11 /hpf Urine Calcium Oxalate Crystals MANY /hpf Urine Mucus MOD /lpf Microscopic Urinalysis Comment CULT NOT INDICATED Clue Cells (Wet Prep) NONE SEEN Vaginal Trichomonas (Wet Prep) NONE SEEN Vaginal Yeast (Wet Prep) NONE SEEN MDM Medical Decision Making Medical Screen Exam Complete: Yes Emergency Medical Condition: Yes Medical Record Reviewed: Yes Differential Diagnosis UTI, pyelonephritis, cervicitis, chlamydia, gonorrhea, trichomonas Narrative Course 52-year-old female with vaginal and urinary symptoms. Wet prep, chlamydia, gonorrhea, urinalysis ordered. 1333: Wet prep with no clue cells, vaginal yeast, trichomonas seen. Chlamydia and gonorrhea are pending. Patient empirically treated with azithromycin and Rocephin in the ER. Urinalysis without signs of infection. I will give the patient a prescription for Diflucan for home as she did have some external vaginitis that was noted on pelvic exam. Instructed patient to follow-up with stretching press operator. Instructed patient to follow up with primary care provider. Patient verbalizes understanding and agreement with treatment plan. Patient is medically cleared and stable for discharge. Discussed reasons to return to the emergency department. Patient agrees with treatment plan. The patients vital signs are stable and the patient is stable for outpatient follow-up and treatment. Patient discharged home, stable and in no acute distress. Diagnosis Primary Impression: Vaginitis Qualified Codes: N76.0 - Acute vaginitis Additional Impression: Cervicitis Referrals: [facility] Primary Care Physician Patient Instructions: Cervicitis (ED), General Instructions, Vaginitis (ED) Additional Instructions: Diflucan as prescribed Avoid sexual activity for 14 days No sexual activity with your partner/s until they have been treated and waited 14 days Inform all sexual partners within the past 3-6 months that they need to be evaluated and treated Use condoms every time you have sex Follow-up with primary care provider Follow-up with stretching press operator Return to the emergency department immediately with worsening of symptoms Med/Other Pt SpecificInfo: Prescription(s) given Scripts Nitrofurantoin Monohydrate Macrocrystals (Macrobid) 100 Mg Cap 100 MG PO BID for Infection for 5 Days, #10 CAP 0 Refills Prov: Unique Dwyer 07/23/17 Fluconazole (Diflucan) 150 Mg Tab 150 MG PO ONCE for Infection, #2 TAB 0 Refills Take one pill now by mouth and Take one pill in 1 week if symptoms persist Prov: Unique Dwyer 07/23/17 Disposition: 01 DISCHARGE HOME Condition: Stable Unique Dwyer Jul 23, 2017 11:42
[2017-07-23 12:15] VITALS: BP 132/76; PULSE 80; RESP 18; O2SAT 98
[2017-07-23 12:42] LABS: BILIRUBIN, URINE NEG (NEG); BLOOD, URINE SMALL (NEG); CALCIUM OXALATE CRYSTALS,URINE MANY /hpf; GLUCOSE,URINE NEG (NEG); KETONE, URINE NEG (NEG); MUCUS URINE MOD /lpf (OCC); NITRITE,URINE NEG (NEG); PH, URINE 5.5 (5.0-8.5); SQUAMOUS EPITHELIAL CELL URINE 11 /hpf (0-5); URINE COLOR YELLOW (YELLW/STRAW); URINE LEUKOCYTE ESTERASE LARGE (NEG)
[2017-07-23] MEDS ORDERED: AZITHROMYCIN 250 MG TAB PO ONE (12:45)
[2017-07-23] MEDS ORDERED: LIDOCAINE HCL 1% 50 ML VIAL IM ONE (12:45)
[2017-07-23] MEDS ORDERED: cefTRIAXone 250 MG VIAL IM ONE (12:45)
[2017-07-23] MEDS ORDERED: ONDANSETRON ODT 4 MG TAB PO ONE (12:45)
[2017-07-23] MEDS ORDERED: DIFL150T PO (12:49)
[2017-07-23] MEDS ORDERED: MACR100C2 PO (13:40)
[2017-07-23 13:42] VITALS: BP 128/70
== END 2017-07-23 13:42 | disposition home or self-care (01) ==
LOC: NEPD 10:52
DX: N76.0 Acute vaginitis (principal); N72 Inflammatory disease of cervix uteri; F12.90 Cannabis use, unspecified, uncomplicated; Z98.51 Tubal ligation status
CPT/HCPCS: 81001; 87210; 87491; 87591; 96372; 99283; J0696